=== PATIENT | female | born 1970 | race Two or more races ===

== ENCOUNTER 2019-09-24 08:45 | Inpatient (IN) | payer OTHER ==
[~2019-09-24] VITALS: Ht 165.1 cm; Wt 56.7 kg
[2019-10-07] MEDS ORDERED: AUGMENTIN XR 11 EACH PO (10:42)
[2019-10-07] MEDS ORDERED: ULTRACET PO (10:42)
[2019-10-07] MEDS ORDERED: LOVENOX40 MG/0.4 SUBCUTANEO (10:44)
== END 2019-10-07 11:11 | disposition home or self-care (01) | DRG 331 ==
LOC: RECOVERY 09-25 08:45 → O/R 10-02 05:45 → OB/GYN 10-02 05:45
PROVIDERS: Surgery; ADMIT Obstetrics & Gynecology Gynecologic Oncology; ATTEND Obstetrics & Gynecology Gynecologic Oncology
PROC: 0DBU0ZZ Excision of Omentum, Open Approach (ICD-10-PCS; 2019-10-02)
PROC: 0DNW0ZZ Release Peritoneum, Open Approach (ICD-10-PCS; 2019-10-02)
PROC: 0DBW0ZZ Excision of Peritoneum, Open Approach (ICD-10-PCS; 2019-10-02)
PROC: 0UT90ZZ Resection of Uterus, Open Approach (ICD-10-PCS; 2019-10-02)
PROC: 0UB70ZZ Excision of Bilateral Fallopian Tubes, Open Approach (ICD-10-PCS; 2019-10-02)
PROC: 0UB20ZZ Excision of Bilateral Ovaries, Open Approach (ICD-10-PCS; 2019-10-02)
PROC: 0TBB0ZX Excision of Bladder, Open Approach, Diagnostic (ICD-10-PCS; 2019-10-02)
PROC: 0DTF0ZZ Resection of Right Large Intestine, Open Approach (ICD-10-PCS; principal; 2019-10-02 22:45)
PROC: 0WBF0ZX Excision of Abdominal Wall, Open Approach, Diagnostic (ICD-10-PCS; 2019-10-02 22:45)
DX: C78.6 Secondary malignant neoplasm of retroperitoneum and peritoneum (principal); N72 Inflammatory disease of cervix uteri; K66.0 Peritoneal adhesions (postprocedural) (postinfection); D25.0 Submucous leiomyoma of uterus; N83.12 Corpus luteum cyst of left ovary; N83.11 Corpus luteum cyst of right ovary